=== PATIENT | male | born 1980 | race Two or more races ===

== ENCOUNTER 2017-09-25 12:15 | Emergency (ER) | payer OTHER ==
[~2017-09-25] VITALS: Ht 180.3 cm; Wt 81.6 kg
[2017-09-25 12:21] VITALS: BP 132/83
== END 2017-09-25 13:03 | disposition home or self-care (01) ==
LOC: ER 12:19
DX: H66.91 Otitis media, unspecified, right ear (principal); J03.90 Acute tonsillitis, unspecified; J06.9 Acute upper respiratory infection, unspecified; I10 Essential (primary) hypertension
CPT/HCPCS: A4606; Z7610